=== PATIENT | female | born 1955 | race Caucasian/White ===

== ENCOUNTER 2023-02-22 17:06 | Emergency (ER) | payer MEDICARE, BC ==
[2023-02-22] MEDS ORDERED: Adenosine 6 MG/2 ML SDV ONE (17:21)
[2023-02-22] MEDS ORDERED: Adenosine 12 MG/4 ML SDV ONE (17:21)
[2023-02-22] MEDS ORDERED: Sodium Chloride 0.9% 10 ML Syringe FLUSH PRN (17:34)
[2023-02-22] MEDS ORDERED: Sodium Chloride 0.9% 1,000 ML IV SCH ×2 (17:45→18:00)
[2023-02-22] MEDS ORDERED: Adenosine 6 MG/2 ML SDV IVPUSH ONE (17:58)
[2023-02-22] MEDS ORDERED: Sodium Chloride 0.9% 1,000 ML IV ONE (17:59)
[2023-02-22 19:06] LABS: BASOPHILS ABSOLUTE AUTO 0.02 K/mm3 (0.01-0.08); BASOPHILS PERCENT AUTO 0.3 % (0.1-1.2); EOSINOPHILS ABSOLUTE AUTO 0.13 K/mm3 (0.04-0.36); HEMATOCRIT 35.6 % (34.1-44.9); HEMOGLOBIN 11.4 gm/dl (11.2-15.7); IMMATURE GRAN ABSOLUTE AUTO 0.01 K/mm3 (0.00-0.10); IMMATURE GRAN PERCENT AUTO 0.2 % (<=1.0); LYMPHOCYTES ABSOLUTE AUTO 1.43 K/mm3 (1.18-3.74); LYMPHOCYTES PERCENT AUTO 21.8 % (19.3-51.7); MEAN CORPUSCULAR HEMOGLOBIN 31.4 pg (25.6-32.2); MEAN CORPUSCULAR VOLUME 98.1 fl (79.4-94.8); MEAN PLATELET VOLUME 9.6 fl (9.4-12.3); MONOCYTES ABSOLUTE AUTO 0.77 K/mm3 (0.24-0.36); MONOCYTES PERCENT AUTO 11.8 % (4.7-12.5); NEUTROPHILS ABSOLUTE AUTO 4.19 K/mm3 (1.56-6.13); NEUTROPHILS PERCENT AUTO 63.9 % (34.0-71.1); PLATELET COUNT,PLT 156 K/mm3 (182-369); RED BLOOD CELL COUNT 3.63 M/mm3 (3.98-5.22); WHITE BLOOD CELL COUNT,WBC 6.55 K/mm3 (3.98-10.04)
[2023-02-22 19:47] LABS: A/G RATIO 1.4 (1-2); ALBUMIN 3.5 g/dl (3.4-5.0); ANION GAP 17.7 (5-15); BILIRUBIN TOTAL 0.4 mg/dL (0.2-1.0); CALCIUM 8.6 mg/dL (8.5-10.1); EST CRCL DRUG DOSING (CG) 42.59 mL/min; MAGNESIUM 1.7 mg/dL (1.8-2.4); POTASSIUM,K 3.7 mEq/L (3.5-5.1); PROTEIN TOTAL,TP 6.1 g/dl (6.4-8.2); TSH 1.298 uIU/mL (0.358-3.74)
[2023-02-22] MEDS ORDERED: Metoprolol Tartrate 25 MG Tab PO ONE (20:31)
[2023-02-22 21:00] VITALS: BP 99/62; PULSE 87
== END 2023-02-22 21:00 | disposition home or self-care (01) ==
LOC: JD.ED 17:06
DX: I47.1 Supraventricular tachycardia (principal); Z98.890 Other specified postprocedural states; Z88.5 Allergy status to narcotic agent; Z88.8 Allergy status to other drugs, medicaments and biological substances
CPT/HCPCS: 36415; 80053; 83735; 84443; 84484; 85025; 93005; 96361; 96374; 99285; A9270; J0153; J7030

== ENCOUNTER 2024-07-04 14:28 | Emergency (ER) | payer MEDICARE, BC ==
[2024-07-04 14:53] VITALS: BP 129/75; PULSE 73
== END 2024-07-04 15:24 | disposition home or self-care (01) ==
LOC: JD.ED 14:28
DX: S13.4XXA Sprain of ligaments of cervical spine, initial encounter (principal); S30.0XXA Contusion of lower back and pelvis, initial encounter; R47.1 Dysarthria and anarthria; I50.9 Heart failure, unspecified; Z79.2 Long term (current) use of antibiotics; Z88.8 Allergy status to other drugs, medicaments and biological substances; Z88.5 Allergy status to narcotic agent; W08.XXXA Fall from other furniture, initial encounter; Y92.009 Unspecified place in unspecified non-institutional (private) residence as the place of occurrence of the external cause
CPT/HCPCS: 99283

== ENCOUNTER 2024-09-04 23:33 | Emergency (ER) | payer MEDICARE, BC ==
[2024-09-05 00:02] LABS: BASOPHILS ABSOLUTE AUTO 0.1 K/mm3 (0.0-0.2); BASOPHILS PERCENT AUTO 0.7 % (0.0-1.0); EOSINOPHILS ABSOLUTE AUTO 0.2 K/mm3 (0.0-0.4); EOSINOPHILS PERCENT AUTO 2.8 % (0.0-6.0); HEMATOCRIT 38.4 % (37.0-47.0); HEMOGLOBIN 12.4 gm/dl (12.0-16.0); IMMATURE GRAN ABSOLUTE AUTO 0.04 K/mm3 (0.00-0.05); IMMATURE GRAN PERCENT AUTO 0.6 % (0.0-0.4); LYMPHOCYTES ABSOLUTE AUTO 1.6 K/mm3 (1.0-4.8); LYMPHOCYTES PERCENT AUTO 21.7 % (24.0-44.0); MEAN CORPUSCULAR HEMOGLOBIN 31.8 pg (28.0-32.0); MEAN CORPUSCULAR HGB CONC 32.3 g/dl (32.0-36.0); MEAN CORPUSCULAR VOLUME 98.5 fl (83.0-99.0); MEAN PLATELET VOLUME 10.4 fl (9.4-12.3); MONOCYTES ABSOLUTE AUTO 0.8 K/mm3 (0.0-0.8); MONOCYTES PERCENT AUTO 11.4 % (0.0-8.0); NEUTROPHILS ABSOLUTE AUTO 4.6 K/mm3 (1.8-7.7); NEUTROPHILS PERCENT AUTO 62.8 % (41.0-71.0); PLATELET COUNT,PLT 119 K/mm3 (150-400); WHITE BLOOD CELL COUNT,WBC 7.25 K/mm3 (3.9-11.3)
[2024-09-05 00:14] LABS: INR 0.93; PROTHROMBIN TIME 9.9 SECONDS (9.7-12.0)
[2024-09-05 00:26] LABS: A/G RATIO 1.2 (1-2); ALBUMIN 4.2 g/dl (3.4-5.0); BILIRUBIN TOTAL 0.3 mg/dL (0.2-1.0); BUN/CREATININE RATIO 33.3 (14-18); CALCIUM 9.7 mg/dL (8.5-10.1); CREATININE 0.9 mg/dL (0.55-1.02); EST CRCL DRUG DOSING (CG) 46.66 mL/min; PROTEIN TOTAL,TP 7.6 g/dl (6.4-8.2)
[2024-09-05] MEDS: Acetaminophen 325 MG Tab PO ONE (00:30)
[2024-09-05] MEDS: Ketorolac 15 MG/ML SDV IVPUSH ONE (00:31)
[2024-09-05 00:38] LABS: SLIDE REVIEW NORMAL SMEAR
[2024-09-05 01:16] VITALS: BP 106/59; PULSE 86
== END 2024-09-05 01:17 | disposition home or self-care (01) ==
LOC: JD.ED 23:33
DX: R09.1 Pleurisy (principal); I50.9 Heart failure, unspecified; E78.00 Pure hypercholesterolemia, unspecified; Z79.899 Other long term (current) drug therapy; Z88.5 Allergy status to narcotic agent; Z88.8 Allergy status to other drugs, medicaments and biological substances
CPT/HCPCS: 36415; 71045; 80053; 82550; 83690; 83735; 83880; 84484; 85025; 85610; 93005; 96374; 99284; A9270; J1885; 93010